=== PATIENT | female | born 1985 | race Caucasian/White ===

== ENCOUNTER 2017-03-27 14:53 | Emergency (ER) | payer OTHER ==
[~2017-03-27] VITALS: Ht 170.2 cm; Wt 123.0 kg
[~2017-03-27 14:53] MED LIST: CALCIUM 500 MG1 EACH PO; CALCIUM600 MG PO; CAMILA0.35 MG PO; ENDOCET 5-3251 EACH PO; FLEXERIL5 MG PO; IBUPROFEN800 MG PO; MECLIZINE HCL25 MG PO; MULTI VITAMIN1 EACH PO; MULTIVITAMIN1 EAC2 PO; Motrin PO; PRENATAL TABLE1 EAC3 PO; VITAMINS; ZOFRAN4 MG PO
[2017-03-27 16:21] LABS: CHLORIDE 107 mEq/L (99-109); POTASSIUM 3.7 mEq/L (3.7-5.4); SODIUM 139 mEq/L (136-147)
[2017-03-27 16:22] LABS: GLUCOSE 142 mg/dL (70-99); HEMATOCRIT 37.7 % (36.0-46.0); MCH 33.2 PG (29.0-34.0); MCV 94.7 FL (83-99); MEAN PLAT.VOLUME 9.2 uM^3 (9.5-12.4); PLATELET COUNT 219 K/uL (156-360); RBC DIS.WIDTH-CV 11.2 % (11.8-14.6); RBC DIS.WIDTH-SD 38.9 % (39-53); RED BLOOD COUNT 3.98 M/uL (3.80-5.20); WHITE BLOOD COUNT 11.2 K/uL (4.1-10.2)
[2017-03-27 16:24] LABS: ANION GAP 7 MEQ/L (2-14)
[2017-03-27 16:26] LABS: GFR ESTIMATE (CALCULATED) > 59 mL/min/
[2017-03-27 16:27] LABS: UREA NITROGEN (BUN) 8 mg/dL (9-23)
[2017-03-27 16:29] LABS: LIPASE 25 U/L (1.0-51.0)
[2017-03-27 16:37] LABS: QUANTITATIVE HCG < 4.0 MIU/ML
[2017-03-27 17:41] LABS: ADD MIUA? YES; BILIRUBIN NEGATIVE; BLOOD LARGE; COLOR YELLOW ((YELLOW)); GLUCOSE (STRIP) NEGATIVE; KETONES NEGATIVE; LEUKOCYTES NEGATIVE; NITRITE NEGATIVE; PROTEIN (STRIP) 30; SPECIFIC GRAVITY 1.012 (1.000-1.030); UROBILINOGEN 0.2 MG/DL (0.2-1.0)
[2017-03-27 17:46] LABS: BACTERIA RARE /HPF; EPITHELIAL CELLS RARE /HPF; MUCUS TRACE /LPF; RED BLOOD CELLS TNTC /HPF (0-5); UCUL ADDED? YES; WHITE BLOOD CELLS 0-5 /HPF (0-5)
[2017-03-27] MEDS ORDERED: PERCOCET 5/31 TABLET PO (17:55)
[2017-03-27] MEDS ORDERED: ZOFRAN4 MG PO (18:19)
[2017-03-27 18:34] VITALS: BP 115/70
[2017-03-29 12:30] LABS: CHLAMYDIA TRACHOMATIS NEGATIVE; NEISSERIA GONORRHOEAE NEGATIVE
== END 2017-03-27 18:37 | disposition home or self-care (01) ==
LOC: EME 14:53
PROVIDERS: Emergency Medicine
DX: N20.0 Calculus of kidney (principal)
CPT/HCPCS: 74176; 80048; 81003; 83690; 84702; 85027; 87086; 87491; 87591; 99281; 99285